=== PATIENT | male | born 1930 | race Caucasian/White ===

== ENCOUNTER 2016-06-17 04:12 | Inpatient (IN) ==
--- NOTE | 2016-06-13 13:15 | EKG Report ---
Test Performed on : 06/13/2016 12:00:49 PM Test Reason : PAT Blood Pressure : / mmHG Vent. Rate : 052 BPM Atrial Rate : 052 BPM P-R Int : 300 ms QRS Dur : 206 ms QT Int : 550 ms P-R-T Axes : 050 -78 109 degrees QTc Int : 511 ms Atrial-sensed ventricular-paced rhythm with prolonged AV conduction Abnormal ECG When compared with ECG of 17-JUL-2015 14:41, No significant change was found Confirmed by Gemma AUGUSTE, Phi Conklin ([id number]) on 06/15/2016 9:51:15 AM
[2016-06-17] MEDS ORDERED: KEFZOL 1 GM/D5W 1 GM/50 ML IVPB ONE (05:40)
[2016-06-17] MEDS ORDERED: LR 1,000 ML ONE ×2 (05:40→09:32)
[2016-06-17] MEDS ORDERED: PEPCID ONE (05:40)
[2016-06-17] MEDS ORDERED: REGLAN ONE (05:40)
[2016-06-17] MEDS ORDERED: MARCAINE 0.25% PF/EPI 1:200,000 ONE (06:11)
[2016-06-17] MEDS ORDERED: KEFZOL ONE (06:11)
[2016-06-17] MEDS ORDERED: XYLOCAINE 1% ONE (06:11)
[2016-06-17] MEDS ORDERED: HEPARIN ONE ×2 (06:11→09:32)
[2016-06-17] MEDS ORDERED: NS 2,000 ML ONE (06:12)
[2016-06-17 06:18] LABS: HEMATOCRIT 42.6 % (42.0-52.0); HEMOGLOBIN 14.3 g/dL (14.0-18.0); MCH 33.1 PG (27-31); MCHC 33.6 g/dL (33-37); MCV 98.6 FL (81-99); MPV 9.9 FL (7.4-10.4); RBC 4.32 XMIL (4.7-6.1)
[2016-06-17] MEDS ORDERED: [UNRECOGNIZED DRUG - SUPPLY] ONE (06:21)
[2016-06-17 06:26] LABS: CALCIUM 9.3 mg/dL (8.8-10.2)
[2016-06-17] MEDS ORDERED: NS 1,000 ML ONE (09:09)
[2016-06-17] MEDS ORDERED: DIPRIVAN 1% ONE (09:16)
[2016-06-17] MEDS ORDERED: FENTANYL ONE (09:16)
--- NOTE | 2016-06-17 09:26 | OPERATIVE NOTE ---
PROCEDURE DATE: 06/17/2016 PREOPERATIVE DIAGNOSIS: High-grade symptomatic left internal carotid stenosis. POSTOPERATIVE DIAGNOSIS: High-grade symptomatic left internal carotid stenosis with ulceration of the plaque. PROCEDURE PERFORMED: Left carotid endarterectomy with patch angioplasty. SURGEON: Jose Alfredo Dumont MD ORTHOPEDIC SPECIALIST: Atilio Gil RN DESCRIPTION OF PROCEDURE: After satisfactory general endotracheal anesthesia was achieved, the patient was placed in a gentle reverse Trendelenburg position. The left side of the neck was prepped and draped in a sterile fashion. We anesthetized the skin in the skin line and made a transverse incision in the skin line at the level of the bifurcation. We incised the skin. The area was anesthetized. We carried our incision through the platysma. We introduced a Gelpi retractor. We dissected along the anterior border of the sternocleidomastoid muscle. Crossing veins were ligated with 3-0 silk ties and divided. We identified the common carotid surrounded with an umbilical tape. Heparin 5000 units was given. We then dissected out the external carotid and surrounded it with a large vessel loop. We dissected out the internal and surrounded it with a small vessel loop. After the heparin had circulated for more than 5 minutes, we then occluded flow in the branch vessels with vessel loops and clamped off the common. We incised the common with an 11 mm blade and extended it with Patino scissors through the plaque in the takeoff of the internal up to the normal-appearing internal. The plaque not only caused the stenosis but it had a large ulceration within it. We placed a 4-3 mm Sundt shunt in the common and internal carotid artery and secured them with ring clamps. Clamp time of the carotid was less than 2 minutes. Under 2.5 loupe magnification, we then raised the plaque out of the common and transected it with Patino scissors. We used a Fidelity then to dissect the plaque out of 1st the external and then the internal. We had a reasonably good taper point in the internal. We irrigated out the endarterectomized vessel with heparinized saline. We removed all leaflets we could identify. We then tacked the intima distally with two 7-0 Prolene stitches. We used a 1 x 6 bovine patch and sutured it to the endarterectomized vessel using 6-0 Prolene running, parachuting style. As we neared completion of the patch angioplasty, we back bled the external, removed the shunt from the internal, and back bled it. We then removed the shunt from the common and fore bled it. We then clamped the vessels off once again and finished the patch angioplasty. We then held the internal occluded, opened the external and then the common and then, after 5 seconds, opened the internal. A good pulse was noted within the internal. There was no evidence of dissection. Patch angioplasty was hemostatic. We irrigated out the neck with Kefzol-impregnated saline. We placed a Jesus drain within the wound. We then closed the platysma with a running 3-0 Polysorb. Once again, we used 0.25% Marcaine with epinephrine in the subcutaneous tissue along the course of the drain for local anesthesia. We then closed the skin with a 4-0 Polysorb subcuticular stitch. A 3- 0 nylon was used to secure the drain at the skin level. Sterile dressings were applied. He tolerated it well and was awakening at the time of this dictation. cc: MD Gus Rodríguez MD
[2016-06-17] MEDS ORDERED: NS 250 ML ONE (09:32)
[2016-06-17] MEDS ORDERED: ROBINUL ONE (09:32)
[2016-06-17] MEDS ORDERED: NEOSTIGMINE ONE (09:32)
[2016-06-17] MEDS ORDERED: PIGGYBACK SET 7393 ONE (09:32)
[2016-06-17] MEDS ORDERED: NEO-SYNEPHRINE ONE (09:32)
[2016-06-17] MEDS ORDERED: ZOFRAN ONE (09:32)
[2016-06-17] MEDS ORDERED: DECADRON ONE (09:32)
[2016-06-17] MEDS ORDERED: ASPIRIN EC PO SCH (11:06)
[2016-06-17] MEDS ORDERED: NS 1,000 ML IV ONE (11:06)
[2016-06-17] MEDS ORDERED: ZOFRAN IV PRN (11:06)
[2016-06-17] MEDS ORDERED: ULTRAM PO PRN (11:06)
[2016-06-17] MEDS: OFIRMEV 1000 MG/ISOTONIC SOLN 1,000 MG/100 ML BOTTLE IV SCH ×3 (12:20→22:58)
[2016-06-17] MEDS: PROTONIX PO SCH (12:20)
[2016-06-17] MEDS: TOPROL XL PO SCH (12:20)
[2016-06-17] MEDS: LEXAPRO PO SCH (12:20)
[2016-06-17] MEDS: ACCUPRIL PO SCH (12:38)
[2016-06-17] MEDS: ASPIRIN PO SCH (16:31)
[2016-06-17] MEDS: LIPITOR PO SCH (20:52)
[2016-06-17] MEDS: FLOMAX PO SCH (20:52)
[2016-06-17 20:55] LABS: URINE CULTURE NEEDED? NO; URINE MICRO REVIEW NEEDED? NO; URINE SOURCE CATH
[2016-06-17 21:10] LABS: BILIRUBIN URINE NEGATIVE (NEGATIVE); BLOOD URINE NEGATIVE (NEGATIVE); COLOR YELLOW; GLUCOSE URINE NEGATIVE (NEGATIVE); LEUKOCYTES URINE NEGATIVE (NEGATIVE); NITRITE URINE NEGATIVE (NEGATIVE); PH URINE 5.5; PROTEIN URINE NEGATIVE (NEGATIVE); SP GRAVITY URINE 1.017; TURBIDITY URINE CLEAR (CLEAR); UROBILINOGEN URINE NORMAL (NORMAL)
[2016-06-17 21:11] LABS: UR EPITHELIAL CELLS <10 /HPF (<10); URINE BACTERIA NEGATIVE /HPF; URINE RBC <10 /HPF (<10); URINE WBC <10 /HPF (<10)
[2016-06-18] MEDS: OFIRMEV 1000 MG/ISOTONIC SOLN 1,000 MG/100 ML BOTTLE IV SCH ×2 (04:16→11:25)
[2016-06-18] MEDS: ACCUPRIL PO SCH (08:42)
[2016-06-18] MEDS: ASPIRIN PO SCH (08:42)
[2016-06-18] MEDS: LEXAPRO PO SCH (08:42)
[2016-06-18] MEDS: TOPROL XL PO SCH (08:42)
[2016-06-18] MEDS ORDERED: SALINE LOCK IV FLUID XX ONE (13:57)
[2016-06-18] MEDS ORDERED: NORCO-7.5 PO PRN (13:59)
[2016-06-18] MEDS: LIPITOR PO SCH (20:43)
[2016-06-18] MEDS: FLOMAX PO SCH (20:43)
[2016-06-19 07:51] VITALS: BP 182/76
[2016-06-19] MEDS: ACCUPRIL PO SCH (08:57)
[2016-06-19] MEDS: TOPROL XL PO SCH (08:57)
[2016-06-19] MEDS: LEXAPRO PO SCH (08:58)
[2016-06-19] MEDS: ASPIRIN PO SCH (08:58)
[2016-06-19] MEDS: PROTONIX PO SCH (08:58)
== END 2016-06-19 09:44 | disposition home or self-care (01) ==
LOC: SURHOLD 04:12 → ICU 10:22 → 4N 06-18 15:54
PROVIDERS: ADMIT Surgery; ATTEND Surgery

== ENCOUNTER 2019-01-15 16:39 | Inpatient (IN) ==
[2019-01-15] MEDS ORDERED: TYLENOL PO PRN (17:26)
[2019-01-15] MEDS ORDERED: NS 1,000 ML IV SCH (17:26)
[2019-01-15 17:55] LABS: BASO# 0.01 X1000 (0.0-0.2); BASO% 0.1 % (0.0-0.8); EOS% 1.4 % (0.0-10.0); HEMATOCRIT 41.5 % (42.0-52.0); HEMOGLOBIN 13.6 g/dL (14.0-18.0); LYMPH# 3.21 X1000 (1.2-3.4); LYMPH% 43.9 % (20.5-51.1); MCH 33.3 PG (27-31); MCHC 32.8 g/dL (33-37); MCV 101.5 FL (81-99); MONO# 0.26 X1000 (0.11-0.59); MONO% 3.6 % (1.7-9.3); MPV 10.2 FL (7.4-10.4); NEUT# 3.73 X1000 (1.4-6.5); PLT 86 X1000 (130-400); RBC 4.09 XMIL (4.7-6.1); RDW 13.4 % (11.5-14.5); WBC 7.31 X1000 (4.8-10.8)
--- NOTE | 2019-01-15 18:10 | Diag Imaging Result Doc PS360 ---
EXAM: CHEST-2 VIEWS HISTORY: cough and congestion TECHNIQUE: Two views COMPARISON: 07/17/2015 FINDINGS: The lungs are well expanded. The heart is not enlarged. Left pacemaker. The vessels are not distended. There are no infiltrates. No pleural effusions. IMPRESSION: No pneumonia or congestive failure. Electronically signed by Andrez Cox 01/15/2019 6:08 PM
--- NOTE | 2019-01-15 18:10 | Diag Imaging Result Doc PS360 ---
EXAM: CT HEAD W/O CONTRAST HISTORY: AMS TECHNIQUE: CT head without contrast COMPARISON: 07/20/2017 FINDINGS: No parenchymal hemorrhage. No epidural or subdural hematoma. No subarachnoid hemorrhage. There is moderate atrophy as well as chronic microvascular ischemic changes and an old left temporal infarct. No mass identified on this noncontrasted exam. No hydrocephalus. No sinus opacification. IMPRESSION: 1.No hemorrhage 2.Atrophy 3.Chronic ischemic changes 4.Old left temporal infarct This exam was performed using automated exposure control, adjustment of mA or kV according to patient size, and/or use of iterative reconstruction technique. Electronically signed by Andrez Cox 01/15/2019 6:07 PM
[2019-01-15 18:11] LABS: ALB/GLOB RATIO 1.9; CALCIUM 8.9 mg/dL (8.8-10.2); CREATININE 1.6 mg/dL (0.7-1.2); TOTAL BILIRUBIN 1.11 mg/dL (0.20-1.00); TOTAL PROTEIN 6.1 g/dL (6.3-8.3)
[2019-01-15 18:17] LABS: FREE T4 0.82 ng/dL (0.93-1.70); TSH 2.59 uIUmL (0.27-4.20)
[2019-01-15 18:27] LABS: CK INDEX 1.6 (0.0-2.5); CK-MB 3.94 ng/mL (0.0-5.0)
--- NOTE | 2019-01-15 20:22 | HISTORY AND PHYSICAL ---
PRIMARY CARE PHYSICIAN: Gus Rao MD CHIEF COMPLAINT: Alteration of mental status. HISTORY OF PRESENT ILLNESS: An 89-year-old, white male with a complicated past medical history presents for evaluation of above-mentioned symptoms. Pertinent history of present illness began last week. At that time, patient's family noted him to suffer a fall. He was assisted back to his feet without incident. He denied significant injury with exception of a skin tear to his right upper extremity. He denied loss of consciousness or head trauma. The patient's overall condition has been largely unchanged until yesterday. The patient's day went reasonably well; however, in the evening, he rested very poorly. Patient's noted him to be up a vast majority of the night. This morning, patient developed a nonproductive cough, congestion, and chills. He denied shortness of breath, wheezing, or fever. He has had a significant sick contact in his . He treated this supportively. This afternoon, a right flank rash was noted. Rash was consistent with herpes zoster. He contacted the on-call physician and was started on Valtrex therapy. He took 1 dose of this medication. At approximately 4:30 in the afternoon, he apparently went to the restroom. Unfortunately, he suffered a fall. The patient is a neighbor of mine, and patient's contacted me for assistance. Upon arrival to his restroom, patient was on the ground sitting on his buttocks. Patient was unable to provide adequate answers as to why or how he fell. The patient's answers were somewhat tangential. He denied loss of consciousness or head trauma. Because of his altered mental status, patient will be admitted to the hospital for further evaluation and management. Of note, patient denies dysuria, hematuria, pyuria, diarrhea, and constipation. Patient's family does note a progression of his underlying dementia over the course of the last several months. PAST MEDICAL HISTORY: 1. Occasional actinic keratosis, followed by Dr. Santiago. 2. Vitamin B12 deficiency. 3. Pacemaker implantation in 2003. 4. Carotid artery disease status post left carotid endarterectomy in 2016. 5. Bilateral cataract removal in 2003. 6. Chronic ischemic heart disease status post stent placement in 2003. 7. Chronic kidney disease with baseline creatinine of 1.5. 8. Depression. 9. Reflux disease. 10. Hypertension. 11. Hyperlipidemia. 12. Chronic lymphocytic leukemia. 13. Chronic low back pain. 14. Mild to moderate cognitive impairment. 15. Elevated PSA status post prostatectomy in 2014. 16. History of a stroke in 2005 and 2016. 17. Umbilical hernia. 18. History of urinary retention in 2014 requiring prostatectomy. CURRENT MEDICATIONS: 1. Aspirin 325 mg at bedtime. 2. Atorvastatin 40 mg at bedtime. 3. Lexapro 5 mg daily. 4. Flomax 0.4 mg at bedtime. 5. Gabapentin 200 mg twice daily. 6. Metoprolol ER 25 mg at bedtime. 7. Plavix 75 mg daily. 8. Protonix 20 mg daily. 9. Tylenol 325 mg 1 to 2 tablets every 6 hours as needed. 10. Vitamin B12 sublingual 1000 mcg daily. ALLERGIES: Patient states he is allergic to sulfa, which causes a rash. SOCIAL HISTORY: Patient previously smoked 1-1/2 packs per day for 20 years. He quit in 1969. He denies alcohol or illicit drug use. He is retired from [employer]. He is unable to exercise routinely. FAMILY HISTORY: Patient's father passed at age 79 secondary to complications of an acute myocardial infarction. Patient's mother passed at age 74 secondary to complications of breast cancer and an unknown brain cancer. History of stroke in siblings. REVIEW OF SYSTEMS: A 12-point review of systems was performed. Pertinent positives and negatives were noted in history of present illness. PHYSICAL EXAMINATION: VITAL SIGNS: Temperature 100.1 degrees, heart rate 70, respirations 18, blood pressure is 148/66. GENERAL: Elderly, no acute distress. HEENT: Normocephalic, atraumatic. Pupils equal, round, reactive to light. Extraocular muscles intact. Sclerae anicteric. [place] conjunctivae. Oral and nasopharynx clear without exudate. NECK: Supple. No lymphadenopathy. No thyromegaly. No bruits auscultated. CARDIOVASCULAR: Regular rate and rhythm. No significant murmurs, rubs, or gallops. PULMONARY: Essentially clear to auscultation bilaterally. ABDOMEN: Soft, nontender, nondistended. Positive bowel sounds. EXTREMITIES: Moves all extremities well. No significant clubbing, cyanosis, or edema. NEUROLOGIC EXAMINATION: Cranial nerves 2 through 12 grossly intact. Motor and sensory grossly intact. PSYCHOLOGIC EXAMINATION: Appropriate. LABORATORY DATA: White blood cell count 7.31, hemoglobin 13.6, hematocrit 41.7, platelet count 86,000. Sodium 138, potassium 4.0, chloride 102 bicarb 24, BUN 25, creatinine 1.6, glucose 102, calcium 8.9, total bilirubin 1.1, total protein 6.1, albumin 4.0, alkaline phosphatase 88, AST 17, ALT 12, CK total 246, CK-MB 394. Troponin less than 0.010, TSH 2.59, free T4 0.82. IMAGING: CT scan of the head revealed no hemorrhage, atrophy, chronic ischemic changes. Old left temporal infarct. Chest x-ray revealed no pneumonia or congestive failure. ASSESSMENT AND PLAN: An 89-year-old, white male with a complicated past medical history as noted presents in consultation after a fall and with associated alteration of mental status. Differential diagnosis is quite broad. Patient will be admitted to the hospital for full evaluation and management. 1. Admit to General Medicine. 2. Alteration of mental status/metabolic encephalopathy--Differential diagnosis is broad but includes intracranial process/stroke, infectious etiologies, medication associated, metabolic etiologies, and advancement of his underlying dementia. In the setting of upper respiratory symptoms, underlying infection is of significant concern. Herpes zoster could also present in a similar way. He had started Valtrex therapy which may also have precipitated some confusion. We will check blood cultures and urine cultures. We will empirically place patient on Rocephin and doxycycline therapy. We will encourage incentive spirometry. We will also encourage out of bed. We will follow patient's clinical course closely. 3. Herpes zoster--We will continue patient on Valtrex therapy. 4. Weakness--The patient was unable to rise from the floor in his restroom. We will initiate physical therapy. We will determine if rehabilitation or physical therapy as an outpatient is warranted at discharge. 5. Fall--At this point, I do not appreciate any acute injuries. We will remain aware. 6. History of stroke--While this could be the etiology of patient's symptoms, CT scan does not demonstrate any evidence of bleeding or any significant changes. We will continue to optimize medical and nonmedical management. Should his condition continue, we will have a low threshold for MRI evaluation. 7. Ischemic heart disease--We will continue patient's optimized medical and nonmedical management. 8. Chronic kidney disease--Patient's baseline creatinine is approximately 1.5. Creatinine today is 1.6. We will follow with hydration. 9. Depression--We will continue patient on Lexapro therapy. 10. Hypertension--We will continue patient on Accupril. 11. Hyperlipidemia--We will continue patient on atorvastatin therapy. 12. Chronic lymphocytic leukemia--We will remain aware. Platelet count today is slightly low at 86,000 but not largely changed from baseline. We will follow. 13. Fluid, electrolytes, nutrition. We will monitor electrolytes. Normal saline at 50 mL an hour. Cardiac prudent diet. 14. Prophylaxis. Patient will be placed on subcutaneous Lovenox. cc: Gus Rao MD
[2019-01-15] MEDS: DOXYCYCLINE 100 MG in NS 250 ML IV SCH (22:09)
[2019-01-15] MEDS: VALTREX PO SCH (22:09)
[2019-01-15] MEDS: LIPITOR PO SCH (22:10)
[2019-01-15] MEDS: NEURONTIN PO SCH (22:10)
[2019-01-15] MEDS: TOPROL XL PO SCH (22:10)
[2019-01-15] MEDS: FLOMAX PO SCH (22:10)
[2019-01-15] MEDS: LOVENOX SUBQ SCH (22:10)
[2019-01-16] MEDS: ROCEPHIN 1 GM in NS 50 ML IV SCH (01:22)
[2019-01-16] MEDS: VALTREX PO SCH ×3 (06:19→21:00)
[2019-01-16] MEDS: DOXYCYCLINE 100 MG in NS 250 ML IV SCH ×2 (09:19→21:01)
[2019-01-16] MEDS: PROTONIX PO SCH (12:36)
[2019-01-16] MEDS: PLAVIX PO SCH (12:36)
[2019-01-16] MEDS: LEXAPRO PO SCH (12:38)
[2019-01-16] MEDS: NEURONTIN PO SCH ×2 (12:38→21:01)
[2019-01-16] MEDS: VITAMIN B-12 PO SCH (12:38)
[2019-01-16] MEDS: ASPIRIN EC PO SCH (12:39)
--- NOTE | 2019-01-16 13:15 | PROGRESS NOTE ---
DATE: 01/16/2019 SUBJECTIVE: Patient was admitted yesterday with alteration of mental status, cough, congestion, and weakness. Patient was placed on broad-spectrum antibiotics. Chest x-ray returned without acute process. CT scan of the head returned without acute changes. The patient was started on IV fluids. This morning, patient's mental status is much improved, approaching baseline. The patient states overall he is feeling better. He continues to have considerable congestion and cough. He denies fevers, chills, nausea, vomiting, or chest discomfort. OBJECTIVE: T-max. 100.1 heart rate 63 to 75 respirations 16 to 18, blood pressure 126 to 149 over 61 to 67.General: Elderly, no acute distress. Cardiovascular: Regular rate and rhythm. No significant murmurs, rubs, or gallops. Pulmonary: Rhonchi at the left base. Adequate air movement. Abdomen: Soft, nontender, nondistended. Positive bowel sounds. Extremities: Moves all extremities well. No significant clubbing, cyanosis, or edema. Dermatologic: Evaluation reveals no evidence of rash. LABORATORY DATA: None. ASSESSMENT AND PLAN: 1. Alteration of mental status/metabolic encephalopathy-I am very encouraged with patient's improvement. Differential diagnosis continues to include infectious etiologies and the possibility of a transient ischemic attack. For now, we will continue IV fluids. We will treat infection as noted below. We will follow cultures. 2. Upper respiratory tract infection versus pneumonia-on exam, patient does have rhonchi at the left base. We will continue IV Rocephin and doxycycline therapy. We will encourage incentive spirometry and aspiration precautions. 3. Herpes zoster-we will continue patient on Valtrex therapy. We will place patient on contact precautions. 4. Weakness-the patient has achieved significant improvement from yesterday. We will encourage out of bed for all meals. We will start physical therapy. 5. Recent fall-I do not appreciate any acute injuries. We will remain aware. 6. History of stroke-we will continue to optimize the patient's medical and nonmedical management. 7. Ischemic heart disease-patient is treated with optimum medical management. He denies cardiac symptoms currently. 8. Chronic kidney disease-patient's creatinine upon admission was 1.6, approximately his baseline. We will continue hydration. We will recheck labs in the morning. 9. Depression-we will continue patient on Lexapro therapy. 10. Hypertension - The patient's blood pressure is reasonably controlled on Accupril. This will be continued. 11. Hyperlipidemia-we will continue atorvastatin therapy. 12. Chronic lymphocytic leukemia-the patient's white blood cell count within normal limits. Platelet count slightly low at 86,000. He has no evidence of active bleeding. We will remain aware. DISPOSITION: At this point, patient continues to require half-way care in a hospital setting. We will plan discharge home once appropriate. cc: Gus Rao MD
[2019-01-16] MEDS: ACCUPRIL PO SCH (13:56)
[2019-01-16] MEDS: FLOMAX PO SCH (21:00)
[2019-01-16] MEDS: LIPITOR PO SCH (21:00)
[2019-01-16] MEDS: TOPROL XL PO SCH (21:00)
[2019-01-16] MEDS: LOVENOX SUBQ SCH (21:01)
[2019-01-17] MEDS: ROCEPHIN 1 GM in NS 50 ML IV SCH (00:09)
[2019-01-17] MEDS: VALTREX PO SCH (04:59)
[2019-01-17 10:30] LABS: URINE SOURCE CLEAN CATCH
[2019-01-17 10:38] LABS: BILIRUBIN URINE NEGATIVE (NEGATIVE); BLOOD URINE NEGATIVE (NEGATIVE); COLOR ORANGE; GLUCOSE URINE NEGATIVE (NEGATIVE); KETONE URINE NEGATIVE (NEGATIVE); LEUKOCYTES URINE NEGATIVE (NEGATIVE); NITRITE URINE NEGATIVE (NEGATIVE); PROTEIN URINE TRACE mg/dL (NEGATIVE); SP GRAVITY URINE 1.025; TURBIDITY URINE TURBID (CLEAR); UROBILINOGEN URINE NORMAL (NORMAL)
[2019-01-17 10:40] LABS: UR EPITHELIAL CELLS <10 /HPF (<10); URINE BACTERIA NEGATIVE /HPF; URINE RBC <10 /HPF (<10); URINE WBC <10 /HPF (<10)
[2019-01-17] MEDS: VITAMIN B-12 PO SCH (10:40)
[2019-01-17] MEDS: NEURONTIN PO SCH (10:40)
[2019-01-17] MEDS: LEXAPRO PO SCH (10:40)
--- NOTE | 2019-01-17 10:40 | Diag Imaging Result Doc PS360 ---
EXAM: CHEST-2 VIEWS HISTORY: cough and congestion TECHNIQUE: Two views COMPARISON: 01/15/2019 FINDINGS: The lungs are hyperexpanded. The heart is not enlarged. Left-sided pacemaker. The vessels are not distended. There are no infiltrates. No pleural effusions. IMPRESSION: No pneumonia or congestive failure. Electronically signed by Andrez Cox 01/17/2019 10:37 AM
[2019-01-17] MEDS: PROTONIX PO SCH (10:41)
[2019-01-17] MEDS: PLAVIX PO SCH (10:41)
[2019-01-17] MEDS: ASPIRIN EC PO SCH (10:41)
[2019-01-17] MEDS: ACCUPRIL PO SCH (10:42)
[2019-01-17] MEDS: DOXYCYCLINE 100 MG in NS 250 ML IV SCH (10:43)
[2019-01-17 12:01] VITALS: BP 176/60
[2019-01-17 13:04] LABS: BASO# 0.01 X1000 (0.0-0.2); BASO% 0.2 % (0.0-0.8); EOS# 0.18 X1000 (0.0-0.7); EOS% 2.9 % (0.0-10.0); HEMATOCRIT 37.5 % (42.0-52.0); HEMOGLOBIN 12.4 g/dL (14.0-18.0); LYMPH# 3.46 X1000 (1.2-3.4); LYMPH% 55.3 % (20.5-51.1); MCH 33.2 PG (27-31); MCHC 33.1 g/dL (33-37); MCV 100.5 FL (81-99); MONO# 0.24 X1000 (0.11-0.59); MONO% 3.8 % (1.7-9.3); MPV 9.9 FL (7.4-10.4); NEUT# 2.37 X1000 (1.4-6.5); NEUT% 37.8 % (42.2-75.2); PLT 78 X1000 (130-400); RBC 3.73 XMIL (4.7-6.1); RDW 13.2 % (11.5-14.5); WBC 6.26 X1000 (4.8-10.8)
[2019-01-17 13:26] LABS: ALB/GLOB RATIO 1.6; ALBUMIN 3.4 g/dL (3.5-5.0); CALCIUM 8.3 mg/dL (8.8-10.2); CREATININE 1.4 mg/dL (0.7-1.2); POTASSIUM 3.2 mmol/L (3.5-5.1); TOTAL BILIRUBIN 1.07 mg/dL (0.20-1.00); TOTAL PROTEIN 5.5 g/dL (6.3-8.3)
--- NOTE | 2019-01-17 14:42 | DISCHARGE SUMMARY ---
ADMISSION DATE: 01/15/2019 DISCHARGE DATE: 01/17/2019 ADMISSION DIAGNOSIS: Alteration of mental status. DISCHARGE DIAGNOSES: 1. Alteration of mental status/metabolic encephalopathy, improved. 2. Upper respiratory tract infection versus pneumonia, improving. 3. Herpes zoster, treated. 4. Weakness, improving. 5. Recent fall without evidence of acute injury. 6. History of stroke, present on arrival. 7. Ischemic heart disease, present on arrival. 8. Chronic kidney disease, present on arrival. 9. Depression, present on arrival . 10. Hypertension, present on arrival. 11. Hyperlipidemia, present on arrival. 12. Chronic lymphocytic leukemia, present on arrival. CONSULTATIONS: None. PROCEDURES: 1. Chest x-rays performed on 01/15/2019 which revealed no pneumonia or congestive heart failure. 2. CT scan of the head was performed on 01/15/2019 which revealed no hemorrhage. Atrophy. Chronic ischemic changes. Old left temporal infarct. 3. Chest x-ray performed on 01/17/2019 which revealed no pneumonia or congestive heart failure. HISTORY AND PHYSICAL EXAMINATION: See admit note. PHYSICAL EXAMINATION PRIOR TO DISCHARGE: Temperature 98.4 degrees, heart rate 60, respirations 18, blood pressure is 176/60. General: Well nourished, well developed, no acute distress. Cardiovascular: Regular rate and rhythm. No significant murmurs, rubs, or gallops. Pulmonary: Clear to auscultation bilaterally. Abdomen: Soft, nontender, nondistended. Positive bowel sounds. Extremities: Moves all extremities well. No significant clubbing, cyanosis or edema. Dermatologic: Evaluation reveals no evidence of rash. LABORATORY DATA: None. HOSPITAL COURSE: The patient was admitted as per history and physical examination. Hospital course per condition: 1. Alteration of mental status/metabolic encephalopathy-upon admission, patient was considerably confused. Differential diagnosis included that of infectious etiologies and transient ischemic attack. The patient was placed on IV fluids. Upper respiratory tract infection was treated as below. With aggressive management, patient achieved resolution to his baseline. At time of discharge, patient was alert and oriented to person, place, and situation. We will continue to follow this closely as an outpatient. 2. Upper respiratory tract infection versus pneumonia-upon admission, patient was noted to have rhonchi in the left base. He had considerable cough and congestion. He was started on Rocephin and doxycycline therapy while hospitalized. Incentive spirometry and aspiration precautions were encouraged. With treatment, overall, his condition improved. At time of discharge, he continued to have cough and congestion, although this was nonlimiting. We will complete treatment with cefdinir 300 mg twice daily for 5 additional days. We will follow this up as an outpatient. 3. Herpes zoster-the patient was diagnosed upon admission. He was started on Valtrex therapy. He will complete this as an outpatient. 4. Weakness-this is likely a consequence of his upper respiratory illness and zoster. He was treated with physical therapy while hospitalized. At time of discharge, he was approaching baseline. We will encourage p.o. intake and activity. 5. Recent fall-there was no evidence of acute injury sustained from this fall. We will consider whether physical therapy/balance therapy is appropriate as an outpatient. 6. History of stroke-as above, patient's mental status has returned to baseline. We will continue to optimize medical and nonmedical management. 7. Ischemic heart disease-patient has longstanding disease. He denied cardiac symptoms while hospitalized. We will continue his optimized medical management. 8. Chronic kidney disease-creatinine remained at baseline while hospitalized. He was treated with hydration. 9. Depression-patient was continued on Lexapro therapy while hospitalized. Symptoms remain controlled. 10. Hypertension-patient's blood pressure remained adequately controlled with Accupril therapy. 11. Hyperlipidemia-patient was continued on atorvastatin therapy. We will follow this as an outpatient. 12. Chronic lymphocytic leukemia-patient is followed closely as an outpatient. With exception of a slightly low platelet count of 86,000, his labs remained acceptable. He had no evidence of active bleeding. DISCHARGE CONDITION: Good. DISPOSITION: Discharge to home. MEDICATIONS: 1. Accupril 5 mg daily. 2. Lexapro 5 mg daily. 3. Gabapentin 200 mg twice daily. 4. Protonix 20 mg daily. 5. Metoprolol ER 25 mg at bedtime. 6. Tylenol 650 mg every 6 hours as needed. 7. Valtrex 1000 mg every 8 hours for a total of 7 days. 8. Vitamin B12 1000 mcg daily. 9. Clopidogrel 75 mg daily. 10. Cefdinir 300 mg twice daily for 5 days. 11. Aspirin 325 mg daily. 12. Tamsulosin 0.4 mg at bedtime. 13. Lipitor 40 mg at bedtime. FOLLOWUP: The patient is to follow up with me in approximately 1 to 2 weeks. cc: Gus Rao MD
== END 2019-01-17 13:34 | disposition home or self-care (01) | DRG 70 ==
LOC: DIRADM 16:39 → EDIPHOLD 17:09 → 3N 20:40
PROVIDERS: ADMIT Internal Medicine; ATTEND Internal Medicine